=== PATIENT | male | born 1960 | race Asian ===

== ENCOUNTER 2016-10-14 17:09 | Emergency (ER) | payer OTHER ==
[~2016-10-14] VITALS: Ht 152.4 cm; Wt 71.0 kg
[~2016-10-14 17:09] MED LIST: AMO500 PO; ASPI-664 PO; CIPR500T4 PO; IBUP-1542 PO; LORA10TA3 PO; METF500T4 PO; MONT10TA24 PO
[2016-10-14 17:13] VITALS: Ht 152.4 cm; Wt 71.0 kg
[2016-10-14] MEDS ORDERED: SOD CHLORIDE 0.9% 1,000 ML IV STA (19:55)
[2016-10-14 20:02] LABS: ADD SCAN DIFF NO
[2016-10-14 20:04] LABS: BASOPHIL # 0.1 10^3/ul (0.0-0.1); EOSINOPHILS # 0.4 10^3/ul (0.0-0.5); EOSINOPHILS % 4.9 % (0.0-7.0); HEMATOCRIT 45.5 % (42.0-52.0); HEMOGLOBIN 15.3 g/dl (14.0-18.0); LYMPHOCYTES # 3.2 10^3/ul (0.8-2.9); LYMPHOCYTES % 40.2 % (15.0-51.0); MEAN CORPUSCULAR HEMOGLOBIN 29.1 pg (29.0-33.0); MEAN CORPUSCULAR HGB CONC 33.6 g/dl (32.0-37.0); MEAN CORPUSCULAR VOLUME 86.7 fl (82.0-101.0); MEAN PLATELET VOLUME 12.2 fl (7.4-10.4); MONOCYTE # 0.8 10^3/ul (0.3-0.9); MONOCYTES % 9.7 % (0.0-11.0); NEUTROPHIL # 3.5 10^3/ul (1.6-7.5); PLATELET COUNT 172 10^3/UL (140-415); RED BLOOD COUNT 5.25 10^6/ul (4.70-6.10); RED CELL DISTRIBUTION WIDTH 11.9 % (11.5-14.5)
[2016-10-14 20:06] LABS: ADD UMIC NO; URINE BILIRUBIN (Dip) NEGATIVE (NEGATIVE); URINE BLOOD (Dip) NEGATIVE (NEGATIVE); URINE COLOR LT. YELLOW (YELLOW); URINE GLUCOSE (Dip) NEGATIVE (NEGATIVE); URINE KETONES (Dip) NEGATIVE (NEGATIVE); URINE LEUKOCYTE ESTERASE (Dip) NEGATIVE (NEGATIVE); URINE NITRITE (Dip) NEGATIVE (NEGATIVE); URINE TOTAL PROTEIN (Dip) NEGATIVE (NEGATIVE); URINE UROBILINOGEN (Dip) 0.2 E.U./dL (0.1-1.0)
[2016-10-14 20:13] LABS: INR 0.92; PROTIME 12.4 Sec (12.2-14.2)
[2016-10-14 20:15] LABS: PARTIAL THROMBOPLASTIN TIME 29.4 Sec (25.0-35.0)
[2016-10-14 20:16] LABS: ALANINE AMINOTRANSFERASE 34 IU/L (13-69); ALBUMIN 4.4 g/dl (3.3-4.9); ALBUMIN/GLOBULIN RATIO 1.25; ALKALINE PHOSPHATASE 106 IU/L (42-121); AMYLASE 71 U/L (11-123); ANION GAP 14 (8-16); ASPARTATE AMINO TRANSFERASE 22 IU/L (15-46); BLOOD UREA NITROGEN 14 mg/dl (7-20); CALCIUM 9.8 mg/dl (8.4-10.2); CARBON DIOXIDE 25 mmol/L (21-31); CHLORIDE 105 mmol/L (97-110); CREATININE 1.02 mg/dl (0.61-1.24); GLUCOSE 123 mg/dl (70-220); SODIUM 140 mmol/L (135-144); TOTAL PROTEIN 7.9 g/dl (6.1-8.1)
[2016-10-14] MEDS ORDERED: ONDANSETRON 4 MG INJ IV STA (20:27)
[2016-10-14] MEDS ORDERED: DICLOFENAC SODIUM 37.5 MG/ML VIAL IV STA (20:27)
--- NOTE | 2016-10-14 20:27 | ERD ---
ER Documentation Chief Complaint Date/Time DATE: 10/14/16 TIME: 20:19 Chief Complaint DIZZINESS STATES HYPOTENSIVE TODAY HPI This is a 56-year-old male that presents to the emergency department complaining of low blood pressure that has been intermittent for the past 5 days. The patient indicates he has a history of hypertension and takes his blood pressure at home on a regular basis. Indicates 5 days ago he felt lightheaded and dizzy when he took his blood pressure systolic pressure was 95mmHg. He does indicate that the dizziness has been intermittent and improves when he lies supine and worsens when he goes from a sitting to a standing position. Therefore the patient indicates for the past 5 days he has not taken any of his antihypertensive medications. He denies a headache or changes in vision. He also complains of mild neck pain that he states is exacerbated by movement, dull achy sensation has been present for the past 3 weeks. He denies any recent remote trauma to his neck. He has had no fevers no shaking or chills. He denies any numbness or tingling of his upper or lower extremities. He denies any changes in vision. He denies any chest pain or pressure that radiates to the neck arm back or jaw he has no shortness of breath at rest or exertion. He denies any recent travel. ROS All systems reviewed and are negative except as per history of present illness. Medications Home Meds Active Scripts Naproxen* (Naprosyn*) 500 Mg Tablet, 500 MG PO BID Y for PAIN AND/OR INFLAMMATION, #20 TAB Prov:MOOSE PECK 10/14/16 Reported Medications [Qvar 80MCG] No Conflict Check, 1 PUFF PO BID 10/14/16 Cholecalciferol (Vitamin D3) (VITAMIN D-3) 2,000 Unit Capsule, 2000 UNIT PO DAILY, CAP 10/14/16 Simvastatin* (Zocor*) 20 Mg Tablet, 20 MG PO QHS, #30 TAB 10/14/16 Lisinopril* (Lisinopril*) 20 Mg Tablet, 20 MG PO DAILY, #30 TAB 10/14/16 Montelukast Sodium* (Montelukast Sodium*) 10 Mg Tablet, 10 MG PO DAILY, #30 07/12/15 Loratadine* (Loratadine*) 10 Mg Tablet, 10 MG PO DAILY, #30 07/12/15 Aspirin* (Aspirin* EC) 81 Mg Tablet.dr, 81 MG PO DAILY, #30 07/12/15 Metformin* (Glucophage*) 500 Mg Tab, 500 MG PO BID, #60 07/12/15 Discontinued Scripts Amoxicillin* (Amoxicillin*) 500 Mg Cap, 500 MG PO TID for 10 Days, CAP Prov:JOEY KELLER MD 04/01/16 Ibuprofen* (Motrin*) 600 Mg Tab, 600 MG PO Q6, #15 TAB Prov:JOEY KELLER MD 04/01/16 Ciprofloxacin Hcl* (Ciprofloxacin Hcl*) 500 Mg Tablet, 500 MG PO BID, #7 TAB Prov:ALEXA BEAL 07/15/15 Allergies Allergies: Coded Allergies: No Known Allergy (Unverified , 10/14/16) PMhx/Soc History of Surgery: Yes (APPY ) Anesthesia Reaction: No Hx Neurological Disorder: No Hx Respiratory Disorders: Yes (asthma) Hx Cardiac Disorders: Yes (HYPOTENSION and elevated cholesterol level) Hx Psychiatric Problems: No Hx Miscellaneous Medical Probl: Yes (DIABETES) Hx Alcohol Use: No Hx Substance Use: No Hx Tobacco Use: Yes (quit 10 year ago) Physical Exam Vitals Vital Signs Date Time Temp Pulse Resp B/P Pulse Ox O2 Delivery O2 Flow Rate FiO2 10/14/16 17:13 98.0 105 18 122/79 99 Physical Exam Constitutional:Well-developed. Well-nourished. HEENT:Normocephalic. Atraumatic.Pupils were equal round reactive to light. Moist mucous membranes.No tonsillar exudates. Neck: No nuchal rigidity. No lymphadenopathy. No posterior cervical spine tenderness or step-offs. Mild tenderness over C3-C4 Respiratory: Not using accessory muscles of respiration.Lungs were clear to auscultation bilaterally. No rhonchi. No rales. No wheezing. Cardiovascular: Regular rate regular rhythm.No murmurs. No rubs were appreciated.S1, S2 normal. Distal pulses are palpable 2+ bilaterally. GI: Abdomen was soft. Nontender. Non Distended. No pulsatile abdominal masses or bruits. No rebound. No guarding. Bowel sounds were present and normal. Muscle skeletal: Full range of motion of both the upper and lower extremities bilaterally.Normal muscle tone.No assymetrical calf tenderness or swelling. Skin: No petechia, no purpura. No lesions on the palms or the soles of the feet. No maculopapular rash. NEURO: Patient was alert, awake, orientated x3.No facial droop. Gait observed and normal with no ataxia.Speech had regular rate and rhythm. No focal neurological deficits. No nystagmus Result Diagram: 10/14/16 1950 10/14/16 1950 Results 24 hrs Laboratory Tests Test 10/14/16 19:50 10/14/16 19:55 White Blood Count 8.010^3/ul Red Blood Count 5.2510^6/ul Hemoglobin 15.3g/dl Hematocrit 45.5% Mean Corpuscular Volume 86.7fl Mean Corpuscular Hemoglobin 29.1pg Mean Corpuscular Hemoglobin Concent 33.6g/dl Red Cell Distribution Width 11.9% Platelet Count 31586^3/UL Mean Platelet Volume 12.2fl Neutrophils % 44.0% Lymphocytes % 40.2% Monocytes % 9.7% Eosinophils % 4.9% Basophils % 1.0% Nucleated Red Blood Cells % 0.0/100WBC Neutrophils # 3.510^3/ul Lymphocytes # 3.210^3/ul Monocytes # 0.810^3/ul Eosinophils # 0.410^3/ul Basophils # 0.110^3/ul Nucleated Red Blood Cells # 0.010^3/ul Prothrombin Time 12.4Sec Prothrombin Time Ratio 1.0 INR International Normalized Ratio 0.92 Activated Partial Thromboplast Time 29.4Sec Sodium Level 140mmol/L Potassium Level 4.0mmol/L Chloride Level 105mmol/L Carbon Dioxide Level 25mmol/L Anion Gap 14 Blood Urea Nitrogen 14mg/dl Creatinine 1.02mg/dl Glucose Level 123mg/dl Calcium Level 9.8mg/dl Total Bilirubin 0.0mg/dl Direct Bilirubin 0.00mg/dl Indirect Bilirubin 0.0mg/dl Aspartate Amino Transf (AST/SGOT) 22IU/L Alanine Aminotransferase (ALT/SGPT) 34IU/L Alkaline Phosphatase 106IU/L Troponin I < 0.012ng/ml Total Protein 7.9g/dl Albumin 4.4g/dl Globulin 3.50g/dl Albumin/Globulin Ratio 1.25 Amylase Level 71U/L Lipase 150U/L Urine Color LT. YELLOW Urine Clarity CLEAR Urine pH 6.0 Urine Specific [place] 1.025 Urine Ketones NEGATIVE Urine Nitrite NEGATIVE Urine Bilirubin NEGATIVE Urine Urobilinogen 0.2 E.U./dL Urine Leukocyte Esterase NEGATIVE Urine Hemoglobin NEGATIVE Urine Glucose NEGATIVE% Urine Total Protein NEGATIVE Current Medications Medications (Trade) Dose Ordered Sig/Coretta Route PRN Reason Start Time Stop Time Status Last Admin Dose Admin Sodium Chloride (NS) 1,000 ml @ 1,000 mls/hr Q1H STAT IV 10/14/16 19:55 10/14/16 20:54 DC 10/14/16 20:15 Meclizine HCl (Antivert) 25 mg ONCE ONCE PO 10/14/16 20:30 10/14/16 20:31 DC 10/14/16 21:23 Ondansetron HCl (Zofran Inj) 4 mg ONCE STAT IV 10/14/16 20:27 10/14/16 20:28 DC 10/14/16 21:23 Diclofenac Sodium (Dyloject) 37.5 mg ONCE STAT IV 10/14/16 20:27 10/14/16 20:28 DC 10/14/16 21:23 Procedures/[facility] This patient was seen and evaluated by myself. The patient presented to the emergency department complaining of dizziness. My differential diagnosis included but was not limited to hypovolemia, myocardial infarction, pulmonary embolism, hypoglycemia, hypoxia, anemia, vasovagal episode, hypothyroidism, anxiety, peripheral or central vertigo. The patient was placed on a director operating, continuous pulse oximetry and IV access established by nursing staff. The patient received a liter bolus of 0.9 normal saline however the patient's blood pressure was normal in the emergency department of 124/87. 12 Lead EKG tracing ordered and reviewed by myself showed: Normal sinus rhythm of 98 bpm and no arrhythmia. ME interval normal. QRS duration normal. No ST segment elevation No ST segment depression. No changes consistent with acute ischemia. The patient also complained of neck pain but had no meningeal signs. He had no trauma and I did obtain a CT scan of the patient's neck which showed no evidence of osteosarcoma or cervical spine fracture. Therefore I did feel this was likely muscle skeletal in origin and indicated he would benefit from an orthopedic follow-up. The patient had been given Zofran and Antivert indicated his dizziness had improved. He did indicate that he had intermittent spinning sensation over the past several days as well that likely could have been a result of peripheral vertigo. I also explained to the patient that the dizziness could have been exacerbated by the hypotension however at this time while in the emergency department as stated above there is no evidence of severe hypertension. The patient was nontoxic in appearance. He stated he felt comfortable being discharged home. He had no electrolyte abnormalities. The patient was discharged home in fair condition. They were instructed to return to the emergency department at any time if there was any worsening of their condition. The patient stated they would follow up with their PCP in the next 24-48 hours to initiate a suitable medication regimen under the care of their PCP as well as to allow their PCP to monitor any drug reactions. The patient was discharged home with prescriptions after they gave informed consent to the new medication. They were also fully informed by myself on the adverse effects and adverse drug interactions in order to provide adequate safeguards to prevent possible adverse reactions to medications. Departure Diagnosis: Primary Impression: Dizziness Additional Impression: Cervical pain (neck) Condition: Fair MOOSE PECK Oct 14, 2016 20:26
[2016-10-14] MEDS ORDERED: MECLIZINE 12.5 MG TAB PO ONE (20:30)
[2016-10-14 20:36] LABS: TROPONIN-I < 0.012 ng/ml (0.00-0.12)
[2016-10-14] MEDS ORDERED: LISI20TA11 PO (21:04)
[2016-10-14] MEDS ORDERED: SIMV20TA PO (21:05)
[2016-10-14] MEDS ORDERED: CHOL20003 PO (21:06)
[2016-10-14] MEDS ORDERED: QVAR 80MCG PO (21:09)
[2016-10-14] MEDS ORDERED: NAPR-260 PO (21:36)
--- NOTE | 2016-10-14 22:38 | RADRPT ---
PROCEDURE: CT Cervical Spine without contrast. CLINICAL INDICATION: Trauma TECHNIQUE: Noncontrast CT of the cervical spine was performed with axial images. Coronal and sagitta l images were also performed. The administered radiation dose was CTDI vol = 22 mGy, DLP = 486 mGy- cm. COMPARISON: There are no similar studies submitted for comparison. FINDINGS: Vertebral body stature and alignment are maintained. No acute fracture or subluxation is identified. The paravertebral and paraspinous soft tissues are unremarkable. IMPRESSION: No acute fracture or subluxation. RPTAT: HIKT .Wei Strickland MD, MD Date Time Electronically viewed and signed by .Wei Strickland MD, on 10/14/2016 22:38 .T/
== END 2016-10-14 22:04 | disposition home or self-care (01) ==
LOC: E/R 17:09
DX: R42 Dizziness and giddiness (principal); M54.2 Cervicalgia; J45.909 Unspecified asthma, uncomplicated; E11.9 Type 2 diabetes mellitus without complications; I10 Essential (primary) hypertension; Z79.82 Long term (current) use of aspirin; Z79.84 Long term (current) use of oral hypoglycemic drugs
CPT/HCPCS: 36415; 72125; 80053; 81003; 82150; 83690; 84484; 85025; 85610; 85730; 87086; 93005; 96374; 96375; J2405; J7030; Z7502; Z7610

== ENCOUNTER 2016-11-14 11:09 | Day surgery (SDC) | payer OTHER ==
[~2016-11-14] VITALS: Ht 165.1 cm; Wt 62.5 kg
[2016-11-14] VITALS (14 sets, daily range): BP systolic 72–142; BP diastolic 44–80; PULSE 86–112; RESP 6–21; Ht 165.1 cm; Wt 62.5 kg
[~2016-11-14 11:09] MED LIST changes: -AMO500 PO; +CHOL20003 PO; -CIPR500T4 PO; +DIPHENHYDRAMINE 50 MG INJ IV PRN; +EPHEDrine SULFATE 50 MG/5 ML SYG IV PRN; +FENTAnyl 50 MCG/ML VIAL IV PRN; +HYDROmorphONE (0.2 MG/ML) 10ML SYG IV PRN; -IBUP-1542 PO; +INSULIN ASPART [NOVOLOG] 3 ML PEN SC ONE; +LABETALOL HCL 20MG INJ IV PRN; +LISI20TA11 PO; +MEPERIDINE 25 MG INJ IV PRN; +NAPR-260 PO; +ONDANSETRON 4 MG INJ IV PRN; +OXYCODONE/ACETAMINOPHEN (5/325) TAB PO PRN; +PROCHLORPERAZINE 10 MG INJ IV PRN; +QVAR 80MCG PO; +SIMV20TA PO; +hydrALAzine 20 MG INJ IV PRN
[2016-11-14] MEDS ORDERED: FLUT16SP17 NASAL (11:52)
[2016-11-14] MEDS ORDERED: BECL8.7A5 INH (11:52)
[2016-11-14] MEDS ORDERED: SOD CHLORIDE 0.9% 1,000 ML IV ONE (12:00)
[2016-11-14] MEDS ORDERED: CEFAZOLIN 2 GM/50 ML (PMX) 50 ML IVPB ONE (12:00)
[2016-11-14 12:56] LABS: ADD SCAN DIFF NO
[2016-11-14 13:00] LABS: BASOPHIL # 0.1 10^3/ul (0.0-0.1); BASOPHILS % 0.8 % (0.0-2.0); EOSINOPHILS # 0.3 10^3/ul (0.0-0.5); HEMATOCRIT 45.8 % (42.0-52.0); HEMOGLOBIN 14.9 g/dl (14.0-18.0); LYMPHOCYTES # 2.3 10^3/ul (0.8-2.9); LYMPHOCYTES % 35.9 % (15.0-51.0); MEAN CORPUSCULAR HEMOGLOBIN 28.1 pg (29.0-33.0); MEAN CORPUSCULAR HGB CONC 32.5 g/dl (32.0-37.0); MEAN CORPUSCULAR VOLUME 86.4 fl (82.0-101.0); MEAN PLATELET VOLUME 12.4 fl (7.4-10.4); MONOCYTE # 0.5 10^3/ul (0.3-0.9); MONOCYTES % 7.8 % (0.0-11.0); NEUTROPHIL # 3.2 10^3/ul (1.6-7.5); NEUTROPHILS % 51.3 % (39.0-77.0); PLATELET COUNT 172 10^3/UL (140-415); RED CELL DISTRIBUTION WIDTH 12.2 % (11.5-14.5); WHITE BLOOD COUNT 6.3 10^3/ul (4.8-10.8)
[2016-11-14] MEDS ORDERED: LIDOCAINE 2% (SDV) 5 ML INJ ONE (13:04)
[2016-11-14] MEDS ORDERED: MIDAZOLAM 1 MG/ML 2 ML INJ ONE (13:04)
[2016-11-14] MEDS ORDERED: PROPOFOL 20 ML ONE (13:05)
[2016-11-14] MEDS ORDERED: FENTAnyl 50 MCG/ML VIAL ONE (13:05)
[2016-11-14] MEDS ORDERED: CEFAZOLIN 1 GM INJ ONE (13:05)
[2016-11-14 13:13] LABS: INR 0.91; PARTIAL THROMBOPLASTIN TIME 30.8 Sec (25.0-35.0); PROTIME 12.3 Sec (12.2-14.2)
[2016-11-14 13:18] LABS: ALBUMIN 4.4 g/dl (3.3-4.9); ALBUMIN/GLOBULIN RATIO 1.37; BILIRUBIN,INDIRECT 0.2 mg/dl (0-1.1); BILIRUBIN,TOTAL 0.2 mg/dl (0.2-1.3); TOTAL PROTEIN 7.6 g/dl (6.1-8.1)
[2016-11-14 13:28] LABS: CALCIUM 9.4 mg/dl (8.4-10.2); CREATININE 1.09 mg/dl (0.61-1.24); POTASSIUM 4.2 mmol/L (3.5-5.1)
--- NOTE | 2016-11-14 13:29 | RADRPT ---
PROCEDURE: XR Chest. CLINICAL INDICATION: Preoperative chest TECHNIQUE: Chest AP portable. COMPARISON: 07/12/2015 FINDINGS: The mediastinal structures are unremarkable. The heart is normal in size and configuration. The pu lmonary vascularity is normal. The lung bowen are unremarkable. No consolidation is identified. The pleural spaces are unremarkable. The axial skeleton is unremarkable. IMPRESSION: No active intrathoracic disease. RPTAT: HGDB .Carlos A Pina MD, MD Date Time Electronically viewed and signed by .Carlos A Pina MD, on 11/14/2016 13:29 .B/
--- NOTE | 2016-11-14 13:37 | PN ---
Date/Time of Note Date/Time of Note DATE: 11/14/16 TIME: 13:36 Assessment/Plan VTE Prophylaxis VTE Prophylaxis Intervention: SCD's Lines/Catheters IV Catheter Type (from Nrsg): Peripheral IV Subjective 24 Hr Interval Summary Free Text/Dictation Informed Consent Obtained. Risks and Benefits of proposed surgery discussed. Alternatives to proposed procedure and their risks and alternatives discussed. Potentials include but are not limited to bleeding, infection, injury to surrounding tissues, organs, nerves, and vessels were discussed. Remote risks such as possibility of , disfigurement, or permanent disability discussed with patient. Patient desires to proceed with the procedure. Exam/Review of Systems Vital Signs Vitals Vital Signs Date Time Temp Pulse Resp B/P Pulse Ox O2 Delivery O2 Flow Rate FiO2 11/14/16 12:59 98.1 89 16 121/79 100 Results Result Diagram: 11/14/16 1235 11/14/16 1235 Results 24 hrs Laboratory Tests Test 11/14/16 12:24 11/14/16 12:35 Bedside Glucose 100 White Blood Count 6.3 # Red Blood Count 5.30 Hemoglobin 14.9 Hematocrit 45.8 Mean Corpuscular Volume 86.4 Mean Corpuscular Hemoglobin 28.1 L Mean Corpuscular Hemoglobin Concent 32.5 Red Cell Distribution Width 12.2 Platelet Count 172 Mean Platelet Volume 12.4 H Neutrophils % 51.3 Lymphocytes % 35.9 Monocytes % 7.8 Eosinophils % 4.0 Basophils % 0.8 Nucleated Red Blood Cells % 0.0 Neutrophils # 3.2 Lymphocytes # 2.3 Monocytes # 0.5 Eosinophils # 0.3 Basophils # 0.1 Nucleated Red Blood Cells # 0.0 Prothrombin Time 12.3 Prothrombin Time Ratio 1.0 INR International Normalized Ratio 0.91 Activated Partial Thromboplast Time 30.8 Sodium Level 144 Potassium Level 4.2 Chloride Level 106 Carbon Dioxide Level 28 Anion Gap 14 Blood Urea Nitrogen 14 Creatinine 1.09 Glucose Level 106 Calcium Level 9.4 Total Bilirubin 0.2 Direct Bilirubin 0.00 Indirect Bilirubin 0.2 Aspartate Amino Transf (AST/SGOT) 26 Alanine Aminotransferase (ALT/SGPT) 44 Alkaline Phosphatase 86 Total Protein 7.6 Albumin 4.4 Globulin 3.20 Albumin/Globulin Ratio 1.37 Medications Medications Current Medications Sodium Chloride (NS) 1,000 ml @ 75 mls/hr [id number] ONCE IV ; Start 11/14/16 at 12:00; Stop 11/15/16 at 01:19 Claude SARMIENTO November 14, 2016 13:37
[2016-11-14] MEDS ORDERED: METOCLOPRAMIDE 10 MG INJ ONE (14:09)
[2016-11-14] MEDS ORDERED: ONDANSETRON 4 MG INJ ONE (14:09)
[2016-11-14] MEDS ORDERED: PHENYLephrine (100 MCG/ML) 5ML SYG ONE (14:19)
[2016-11-14] MEDS ORDERED: BUPIVACAINE 0.5% 30 ML VIAL INJ ONE (14:25)
--- NOTE | 2016-11-14 14:33 | OPR ---
Date/Time of Note Date/Time of Note DATE: 11/14/16 TIME: 14:32 Operative Report Procedure Date: November 14, 2016 Preoperative Diagnosis left dorsal ganglion cyst Postoperative Diagnosis same Operation Performed left dorsal ganglion cystectomy localized adjacent tissue transfer with the use of skin flaps 2 sq cm defect Surgeon: Claude SARMIENTO Specimens left dorsal ganglion cyst Claude SARMIENTO November 14, 2016 14:33
[2016-11-14] MEDS ORDERED: BUPIVACAINE 0.5% (SDV) 30 ML INJ ONE (14:52)
[2016-11-14] MEDS ORDERED: IBUPROFEN 600 MG TAB PO ONE (15:00)
--- NOTE | 2016-11-14 16:58 | OPR ---
DATE OF OPERATION: 11/14/2016 INDICATION: This is a 56-year-old male with a left dorsal ganglion cyst. He requests surgical exci taylor. Risks, alternatives, benefits, and personnel were discussed with the patient and his daughter who acted as an refrigeration installer. They expressed understanding and consents to the operation. PREOPERATIVE DIAGNOSIS: Left dorsal ganglion cyst. POSTOPERATIVE DIAGNOSIS: Left dorsal ganglion cyst. OPERATION PERFORMED: 1. Excision of left dorsal ganglion cyst with 2 cm size incision and 2 cm size cyst. 2. Localized adjacent tissue transfer with the use of skin flaps with 2 square cm defect. SURGEON: Jolly Jay MD SPECIMEN: Left dorsal ganglion cyst. COMPLICATIONS: None. ANESTHESIA: General. DESCRIPTION OF PROCEDURE: The patient was taken to the OR and prepped and draped in the usual steri le fashion. Surgical timeout was performed. IV antibiotics were given. Incision was made over the left dorsal ganglion cyst with a 15 blade. Dissection cautery was carried down to the cyst. The c yst was bluntly dissected out and resected using cautery, including the base of the cyst and content s were also extruded. There was good hemostasis. Due to tissue defect, localized adjacent tissue t ransfer with the use of skin flaps was performed. Multilayer closure with interrupted 3-0 Vicryl an d running 4-0 Monocryl. Local anesthesia was injected. Dermabond is applied. Dictated By: JOLLY MARINO/BRITNEY Conf#: [id number] DID#: [id number]
--- NOTE | 2016-11-15 14:13 | RADRPT ---
Vent Rate: 90 bpm RR Interval: [address] Interval: 130 msec QRS Duration: 82 msec QT Interval: 340 msec QTC Interval: 415 msec P-R-T [place]: 59 - 63 - 49 degrees Normal sinus rhythm Normal ECG Electronically Signed By: Layo Sanches [id number]
== END 2016-11-14 16:07 | disposition home or self-care (01) ==
LOC: SDS 11:09
PROVIDERS: ATTEND Surgery
DX: M67.432 Ganglion, left wrist (principal); E11.9 Type 2 diabetes mellitus without complications; E78.5 Hyperlipidemia, unspecified; I12.9 Hypertensive chronic kidney disease with stage 1 through stage 4 chronic kidney disease, or unspecified chronic kidney disease; N18.9 Chronic kidney disease, unspecified; J45.909 Unspecified asthma, uncomplicated
CPT/HCPCS: 25111; 71010; 80053; 82962; 85025; 85610; 85730; 88304; 93005; J0690; J1815; J2250; J2370; J2405; J2765; J3010; Z7512; Z7610

== ENCOUNTER 2017-03-09 09:47 | Day surgery (SDC) | payer OTHER ==
[~2017-03-09] VITALS: Ht 165.1 cm; Wt 61.2 kg
[~2017-03-09 09:47] MED LIST changes: +BECL8.7A5 INH; -CHOL20003 PO; +CHOL200073 PO; -DIPHENHYDRAMINE 50 MG INJ IV PRN; -EPHEDrine SULFATE 50 MG/5 ML SYG IV PRN; -FENTAnyl 50 MCG/ML VIAL IV PRN; +FLUT16SP17 NASAL; -HYDROmorphONE (0.2 MG/ML) 10ML SYG IV PRN; -INSULIN ASPART [NOVOLOG] 3 ML PEN SC ONE; -LABETALOL HCL 20MG INJ IV PRN; -MEPERIDINE 25 MG INJ IV PRN; -NAPR-260 PO; -ONDANSETRON 4 MG INJ IV PRN; -OXYCODONE/ACETAMINOPHEN (5/325) TAB PO PRN; -PROCHLORPERAZINE 10 MG INJ IV PRN; -QVAR 80MCG PO; -hydrALAzine 20 MG INJ IV PRN
[2017-03-09 10:48] VITALS: BP 121/80; PULSE 111
--- NOTE | 2017-03-09 11:34 | OPPN ---
Date/Time of Note Date/Time of Note DATE: 03/09/17 TIME: 11:33 Operative Report Preoperative Diagnosis Screening Postoperative Diagnosis 2 sigmoid polyps were removed Operation/Procedure Performed Colonoscopy and polypectomy Clipping of the polypectomy site Provider: NENA BULLOCK MD Anesthesia Type: moderate sedation Estimated blood loss: none Transfusion Required: no Specimens Sigmoid polyps Grafts/Implants: none Complications: no NENA BULLOCK MD Mar 09, 2017 11:34
[2017-03-09] MEDS ORDERED: MIDAZOLAM 1 MG/ML 2 ML INJ ONE ×3 (11:41)
[2017-03-09] MEDS ORDERED: FENTAnyl 50 MCG/ML VIAL ONE (11:41)
[2017-03-09 12:03] VITALS: BP 123/90; PULSE 94; RESP 22
--- NOTE | 2017-03-09 12:17 | GILP ---
DATE OF PROCEDURE: 03/09/2017 PROCEDURES PERFORMED: 1. Colonoscopy and polypectomy. 2. Clipping of the polypectomy site. SURGEON: Yoli Rivas MD. INDICATIONS FOR PROCEDURE: Mr. Albaro Mcleod is a 56-year-old male patient who was scheduled for screening colonoscopy. The procedure and possible complications were well explained to the patient. He understood and consented to the procedure. DESCRIPTION OF PROCEDURE: Under the influence of fentanyl and Versed the colonoscope was carefully introduced in the rectum and under direct vision it was advanced all the way to the cecum. Findings, the patient had 2 polyps in the sigmoid colon and they were removed using the snare and electrocautery. There was slight bleeding in one of the polypectomy sites, and clipping was done to stop the bleeding. The patient was noted to have internal hemorrhoids. He tolerated the procedure very well and there was no complication from the procedure. At the end of procedure he was awake with stable vital signs and he was discharged home in the care of his family. IMPRESSION: 1. Colonoscopy all the way to the cecum. 2. Sigmoid colon polyps were removed using the snare and the electrocautery. 3. There was some bleeding at one of the polypectomy sites and it was stopped using a clip. 4. Internal hemorrhoids. PLAN: 1. Await histopathology report. 2. Next screening colonoscopy in 5 years. Dictated By: MD SAUD Kathleen/onur/mehdi /Document#: [id number] CC: Yoli Rivas MD;*EndCC*
== END 2017-03-09 12:43 | disposition home or self-care (01) ==
LOC: GIL 09:47
PROVIDERS: ATTEND Internal Medicine Gastroenterology
DX: Z12.11 Encounter for screening for malignant neoplasm of colon (principal); D12.5 Benign neoplasm of sigmoid colon; K64.8 Other hemorrhoids; E11.9 Type 2 diabetes mellitus without complications; I10 Essential (primary) hypertension; J45.909 Unspecified asthma, uncomplicated
CPT/HCPCS: 45385; 82962; 88305; J2250; J3010; Z7610

== ENCOUNTER 2018-06-04 08:20 | Day surgery (SDC) | END 2018-06-04 14:20 | disposition home or self-care (01) ==

== ENCOUNTER 2018-08-10 11:30 | Emergency (ER) | payer OTHER ==
[~2018-08-10] VITALS: Wt 72.0 kg
[~2018-08-10 11:30] MED LIST changes: -ASPI-664 PO; +ASPI81TA52 PO; +BECL10.62 IH; -BECL8.7A5 INH; -CHOL200073 PO; +ERGO2000 PO; -FLUT16SP17 NASAL; +LISI10TA2 PO; -LISI20TA11 PO; +METF500T24 PO; -METF500T4 PO; +OMEP40CA6 PO
[2018-08-10 11:43] VITALS: BP 125/58; PULSE 71; RESP 18
--- NOTE | 2018-08-10 13:24 | ERD ---
ER Documentation Chief Complaint Chief Complaint BACK PAIN TODAY HPI This is a 57-year-old male with a history of hypertension who presents ED with complaints of episodes of low blood pressure readings over the past week at night. Patient states that he has been taking his blood pressure and he notices his blood pressure is roughly around 90/60. Patient states that he is currently taking lisinopril 10 mg p.o. daily. Patient denies any symptoms of confusion, dizziness or lightheadedness associated with the readings. Patient denies any headache, back pain, blurry vision, changes in vision, neck pain, chest pain, shortness breath, abdominal pain, melena, hematochezia, hematemesis, hemoptysis, dizziness, light headedness and all other symptoms. ROS All systems reviewed and are negative except as per history of present illness. Medications Home Meds Reported Medications Metformin Hcl* (Metformin Hcl*) 500 Mg Tablet, 500 MG PO WITH BREAKFAST DINNE, #60 TAB 06/04/18 Loratadine* (Loratadine*) 10 Mg Tablet, 10 MG PO DAILY, #30 TAB 06/04/18 Lisinopril* (Lisinopril*) 10 Mg Tablet, 10 MG PO DAILY, #30 TAB 06/04/18 Omeprazole* (Omeprazole*) 40 Mg Capsule.dr, 40 MG PO DAILY, #30 CAP 06/04/18 Simvastatin* (Zocor*) 20 Mg Tablet, 20 MG PO QHS, #30 TAB 06/04/18 Montelukast Sodium* (Montelukast Sodium*) 10 Mg Tablet, 10 MG PO QHS, #30 TAB 06/04/18 Ergocalciferol (Vitamin D2) (VITAMIN D2) 2,000 Unit Tablet, 2000 UNIT PO DAILY, TAB 06/04/18 Aspirin (Low Dose Aspirin) 81 Mg Tablet.dr, 81 MG PO DAILY, #30 TAB 06/04/18 Beclomethasone Dipropionate (Qvar Redihaler (80 MCG)) 10.6 Gm Hfa.aeroba, 10.6 GM IH BID, INH 06/04/18 Allergies Allergies: Coded Allergies: No Known Allergy (Unverified , 06/04/18) PMhx/Soc History of Surgery: Yes (LEFT HAND, LAP APPY) Anesthesia Reaction: No Hx Neurological Disorder: No Hx Respiratory Disorders: Yes (ASTHMA) Hx Cardiac Disorders: Yes (HTN, HLD) Hx Psychiatric Problems: No Hx Miscellaneous Medical Probl: No Hx Alcohol Use: No Hx Substance Use: No Hx Tobacco Use: No FmHx Family History: No diabetes Physical Exam Vitals Vital Signs Date Temp Pulse Resp B/P (MAP) Pulse Ox O2 O2 Flow FiO2 Time Delivery Rate 08/10/18 98.1 71 18 125/58 99 11:43 (80) Physical Exam Physical Exam Vitals signs: Reviewed by me. General: Well developed, well nourished, in no acute distress. Patient is awake and alert. Head: Normocephalic, atraumatic. Eyes: Normal conjunctiva, Pupils PERRLA, EOM intact grossly ENT: Pharynx is clear, Moist mucous membranes, external ears, nose and mouth normal Neck: Supple, no masses, lymphadenopathy or JVD Respiratory: Clear to auscultation bilaterally with no wheezing, rhonchi, rales, no distress Cardiovascular: RRR, no murmurs, rubs, or gallops Abdominal: Soft, non-tender, non-distended, no peritoneal signs : Deferred Neurologic: Alert and oriented, moving all extremities, normal speech, no focal weakness, no cerebellar signs. Normal mentation Skin: warm and dry, No rash Psych: Normal mood Result Diagram: 08/10/18 1257 08/10/18 1257 Results 24 hrs Laboratory Tests Test 08/10/18 12:57 White Blood Count 6.3 10^3/ul Red Blood Count 5.38 10^6/ul Hemoglobin 15.2 g/dl Hematocrit 47.2 % Mean Corpuscular Volume 87.7 fl Mean Corpuscular Hemoglobin 28.3 pg Mean Corpuscular Hemoglobin Concent 32.2 g/dl Red Cell Distribution Width 12.5 % Platelet Count 155 10^3/UL Mean Platelet Volume 12.0 fl Immature Granulocytes % 0.200 % Neutrophils % 50.9 % Lymphocytes % 33.5 % Monocytes % 10.5 % Eosinophils % 4.1 % Basophils % 0.8 % Nucleated Red Blood Cells % 0.0 /100WBC Immature Granulocytes # 0.010 10^3/ul Neutrophils # 3.2 10^3/ul Lymphocytes # 2.1 10^3/ul Monocytes # 0.7 10^3/ul Eosinophils # 0.3 10^3/ul Basophils # 0.1 10^3/ul Nucleated Red Blood Cells # 0.0 10^3/ul Sodium Level 141 mmol/L Potassium Level 4.5 mmol/L Chloride Level 101 mmol/L Carbon Dioxide Level 32 mmol/L Anion Gap 8 Blood Urea Nitrogen 15 mg/dl Creatinine 0.99 mg/dl Est Glomerular Filtrat Rate mL/min > 60 mL/min Glucose Level 127 mg/dl Calcium Level 10.2 mg/dl Total Bilirubin 0.1 mg/dl Direct Bilirubin 0.00 mg/dl Indirect Bilirubin 0.1 mg/dl Aspartate Amino Transf (AST/SGOT) 33 IU/L Alanine Aminotransferase (ALT/SGPT) 33 IU/L Alkaline Phosphatase 97 IU/L Total Protein 8.1 g/dl Albumin 4.7 g/dl Globulin 3.40 g/dl Albumin/Globulin Ratio 1.38 Procedures/MDM LAB INTERPRETATION: CBC shows no evidence of hemorrhage or infection Chemistry shows no evidence of significant electrolyte abnormalities or renal insufficiency Liver function test shows no evidence of acute biliary or hepatic dysfunction ER COURSE: The patient was stable throughout ED course. I kept the patient and/or family informed of laboratory and diagnostic imaging results throughout the emergency room course. The patient was promptly evaluated and a treatment plan was devised based on H&P and other data. This plan was discussed with the patient who agreed and had no further questions or concerns prior to discharge. MEDICAL DECISION MAKING: Patient is presenting with complaints of low blood pressure readings over the past week that occur at night while at home. Patient states that these blood pressure readings are asymptomatic and he has no dizziness, confusion lightheadedness or any other associated symptoms with these blood pressure readings. Patient's blood pressure in the emergency department is unremarkable today. Discussed case with my overseeing physician Dr weber and he advises doing a CBC and CMP. Proceeded with ordering CBC and CMP to rule out any hemorrhage or electrolyte abnormalities. All blood work in the emergency department is normal. Physical examination is unremarkable. There is no evidence of GI bleed, CVA, cardiopulmonary disease, kidney dysfunction, among other emergencies. Vitals are stable and patient can be managed close outpatient follow-up. Advised patient to follow-up with his primary care physician in the next 24 hours for management of hypertension and to possibly adjust blood pressure medication. Return to ED with any worsening symptoms DISPOSITION PLAN: We discussed follow up with the patient's primary care doctor within 24 to 48 hours. Patient counseled regarding my diagnostic impression and care plan. Prior to discharge all questions answered. Pt agrees with treatment plan and understands strict return precautions. Precautionary instructions provided including instructions to return to the ER if not improving or for any worsening or changing symptoms or concerns. SPECIALIST FOLLOW UP RECOMMENDED: None Patient has been advised to follow up with primary care in 1-2 days. Disclaimer: Inadvertent spelling and grammatical errors are likely due to EHR/dictation software use and do not reflect on the overall quality of patient care. Also, please note that the electronic time recorded on this note does not necessarily reflect the actual time of the patient encounter. Departure Diagnosis: Primary Impression: Low blood pressure reading Condition: Stable Patient Instructions: Low Blood Pressure (Hypotension) Referrals: [facility] Additional Instructions: Patient advised to return to the ED immediately for new or worsening symptoms. Patient advised to follow up with primary care provider in the next 24-48 hours. Patient verbalized understanding and agrees with treatment plan and course of action. If patient has no primary care they may follow up with one of the community clinics listed on the following page or one of the options listed below [facility] + [facility] [address] [place] [id number] or [facility] [address] [place] [address] [address] [facility] [address] [place] [address] LINDA ZAPATA PA-C Aug 10, 2018 13:24
== END 2018-08-10 14:23 | disposition home or self-care (01) ==
LOC: FTE 11:30
DX: R03.1 Nonspecific low blood-pressure reading (principal); I10 Essential (primary) hypertension; J45.909 Unspecified asthma, uncomplicated; Z79.82 Long term (current) use of aspirin; Z79.84 Long term (current) use of oral hypoglycemic drugs
CPT/HCPCS: 36415; 80053; 85025; Z7502; 99283